=== PATIENT | female | born 1985 | race Native Hawaiian/Other Pacific Islander ===

== ENCOUNTER 2016-09-01 07:16 | Emergency (ER) | payer SELFPAY ==
[~2016-09-01] VITALS: Ht 160 cm; Wt 102.3 kg
[2016-09-01 07:59] LABS: APPEARANCE,URINE CLOUDY (CLEAR); GLUCOSE, URINE (UA) NEGATIVE (NEGATIVE); KETONES,URINE NEGATIVE (NEGATIVE); LEUKOCYTE ESTERASE ,URINE LARGE (NEGATIVE); OCCULT BLOOD,URINE LARGE (NEGATIVE); PH,URINE 5.5 (5.0-8.0); PROTEIN,URINE POS 1+ (NEGATIVE)
[2016-09-01 08:12] LABS: RBC,URINE 26-50 /HPF (0-2); SQUAMOUS EPITHELIAL CELL,UR Few /LPF (None Seen)
[2016-09-01 09:54] VITALS: BP 119/59
[2016-09-01] MEDS ORDERED: SULFAMETHOX/TRIMETH DS 800-160 MG/TABLET PO ONE (10:15)
[2016-09-01] MEDS ORDERED: PHENAZOPYRIDINE HCL 100 MG TABLET PO ONE (10:15)
== END 2016-09-01 10:31 | disposition home or self-care (01) ==
LOC: EMS 07:18
DX: N39.0 Urinary tract infection, site not specified (principal); F17.210 Nicotine dependence, cigarettes, uncomplicated
CPT/HCPCS: 87086; 87106; 99284; 99406

== ENCOUNTER 2023-01-31 01:19 | Emergency (ER) | payer MEDICAID ==
[~2023-01-31] VITALS: Ht 160 cm; Wt 104.0 kg
[2023-01-31 01:31] VITALS: BP 127/86; PULSE 91; RESP 15; TEMP 99
[2023-01-31 01:53] LABS: BASOPHILS % (AUTO) 0.3 % (0.0-2.0); EOSINOPHILS % (AUTO) 0.8 % (1.0-6.0); HEMATOCRIT 30.4 % (36-46); HEMOGLOBIN 9.8 g/dL (12.0-16.0); LYMPHOCYTES # (AUTO) 0.7 K/uL (1.0-4.8); LYMPHOCYTES % (AUTO) 6.7 % (22.0-44.0); MEAN CORPUSCULAR HEMOGLOBIN 26.6 pg (26.0-34.0); MEAN CORPUSCULAR HGB CONC 32.1 G/dL (31.0-37.0); MEAN CORPUSCULAR VOLUME 83 fL (80-100); MONOCYTES # (AUTO) 0.5 K/uL (0.1-1.0); MONOCYTES % (AUTO) 4.7 % (2.0-9.0); NEUTROPHILS # (AUTO) 8.6 K/uL (1.8-7.7); PLATELET COUNT (AUTO) 315 K/uL (150-450); RED BLOOD CELL COUNT(AUTO) 3.68 MIL/uL (4.00-5.20); RED CELL DISTRIBUTION WIDTH 17.4 % (11.5-14.5); WHITE BLOOD COUNT (AUTO) 9.9 K/uL (4.5-11.0)
[2023-01-31 01:56] LABS: NEUTROPHILS % (AUTO) 87.5 % (40.0-70.0)
[2023-01-31 02:07] LABS: ANION GAP 7 mmol/L (8-16); CALCIUM, TOTAL 8.8 mg/dL (8.8-10.5); CARBON DIOXIDE 28 mmol/L (22-29); CHLORIDE 102 mmol/L (98-107); CREATININE 0.85 mg/dL (0.60-1.30); GLOMERULAR FILTR. RATE CALC > 60 mL/min (>60); GLUCOSE,RANDOM 88 mg/dL (70-110); POTASSIUM 4.1 mmol/L (3.5-5.1); SODIUM SERUM 137 mmol/L (136-145); UREA NITROGEN, BLOOD 9 mg/dL (7-18)
[2023-01-31 02:11] LABS: ALANINE AMINOTRANSFERASE 15 U/L (12-78); ALBUMIN 3.3 g/dL (3.4-5.0); ALKALINE PHOSPHATASE 67 U/L (46-116); ASPARTATE AMINOTRANSFERASE 12 U/L (15-37); BILIRUBIN,TOTAL 0.7 mg/dL (0.1-1.0); TOTAL PROTEIN, SERUM 7.1 g/dL (6.4-8.2)
[2023-01-31] MEDS ORDERED: IBUP-1493 PO (02:19)
[2023-01-31] MEDS ORDERED: HYDR-4723 PO (02:19)
[2023-01-31] MEDS ORDERED: AMOX500C2 PO (02:19)
== END 2023-01-31 02:50 | disposition home or self-care (01) ==
LOC: EMS 01:20
DX: K08.89 Other specified disorders of teeth and supporting structures (principal); Z98.890 Other specified postprocedural states
CPT/HCPCS: 80053; 85025; 99283

== ENCOUNTER 2023-06-09 10:54 | Emergency (ER) | payer MEDICAID ==
[~2023-06-09] VITALS: Ht 160 cm; Wt 97.7 kg
[~2023-06-09 10:54] MED LIST: AMOX500C2 PO; HYDR-4723 PO; IBUP-1493 PO
[2023-06-09 11:08] VITALS: TEMP 98.2
[2023-06-09 11:56] LABS: COVID AG,FIA SOURCE NASAL SWAB
[2023-06-09 12:06] LABS: RAPID GROUP A STREP NEGATIVE (NEGATIVE)
[2023-06-09 12:16] LABS: SARS-COV2 (COVID) ANTIGEN,FIA Negative (Negative)
[2023-06-09 12:17] LABS: INFLUENZA TYPE A NEGATIVE FOR TYPE A (NEGATIVE); INFLUENZA TYPE B NEGATIVE FOR TYPE B (NEGATIVE)
[2023-06-09 13:10] VITALS: BP 137/73; PULSE 96; RESP 16
== END 2023-06-09 13:43 | disposition home or self-care (01) ==
LOC: EMS 10:54
DX: J02.9 Acute pharyngitis, unspecified (principal); Z98.890 Other specified postprocedural states; Z20.822 Contact with and (suspected) exposure to COVID-19
CPT/HCPCS: 87430; 87804; 99283